=== PATIENT | male | born 1955 | race Caucasian/White ===

== ENCOUNTER 2017-06-10 09:43 | Emergency (ER) | END 2017-06-10 11:36 | disposition home or self-care (01) | DX: S61.411D Laceration without foreign body of right hand, subsequent encounter (principal); F17.210 Nicotine dependence, cigarettes, uncomplicated; W26.8XXD Contact with other sharp object(s), not elsewhere classified, subsequent encounter; Z23 Encounter for immunization | CPT/HCPCS: 90471; 90715; Z7502 ==

== ENCOUNTER 2017-06-17 20:46 | Emergency (ER) | payer MEDICAID ==
[~2017-06-17] VITALS: Ht 172.7 cm; Wt 68.0 kg
[2017-06-17 21:34] VITALS: Ht 172.7 cm; Wt 68.0 kg
[2017-06-17] MEDS ORDERED: SOD CHLORIDE 0.9% 1,000 ML IV STA (22:10)
[2017-06-17] MEDS ORDERED: ONDANSETRON 4 MG INJ IV STA (22:20)
[2017-06-17 22:39] LABS: BASOPHIL # 0.1 10^3/ul (0.0-0.1); BASOPHILS % 0.3 % (0.0-2.0); EOSINOPHILS # 0.1 10^3/ul (0.0-0.5); EOSINOPHILS % 0.9 % (0.0-7.0); HEMATOCRIT 40.9 % (42.0-52.0); HEMOGLOBIN 14.2 g/dl (14.0-18.0); LYMPHOCYTES # 2.1 10^3/ul (0.8-2.9); LYMPHOCYTES % 13.9 % (15.0-51.0); MEAN CORPUSCULAR HEMOGLOBIN 31.7 pg (29.0-33.0); MEAN CORPUSCULAR HGB CONC 34.7 g/dl (32.0-37.0); MEAN CORPUSCULAR VOLUME 91.3 fl (82.0-101.0); MEAN PLATELET VOLUME 9.8 fl (7.4-10.4); MONOCYTES % 6.6 % (0.0-11.0); NEUTROPHIL # 11.6 10^3/ul (1.6-7.5); NEUTROPHILS % 77.8 % (39.0-77.0); PLATELET COUNT 269 10^3/UL (140-415); RED BLOOD COUNT 4.48 10^6/ul (4.70-6.10); RED CELL DISTRIBUTION WIDTH 12.9 % (11.5-14.5); WHITE BLOOD COUNT 14.9 10^3/ul (4.8-10.8)
[2017-06-17 23:02] LABS: ANION GAP 12 (8-16); BLOOD UREA NITROGEN 18 mg/dl (7-20); CARBON DIOXIDE 26 mmol/L (21-31); CHLORIDE 105 mmol/L (97-110); CREATININE 0.69 mg/dl (0.61-1.24); GLUCOSE 120 mg/dl (70-220); POTASSIUM 3.8 mmol/L (3.5-5.1); SODIUM 139 mmol/L (135-144)
[2017-06-17 23:14] LABS: TROPONIN-I < 0.012 ng/ml (0.00-0.12)
--- NOTE | 2017-06-17 23:27 | RADRPT ---
PROCEDURE: XR Chest. CLINICAL INDICATION: Syncope. TECHNIQUE: Portable AP view of the chest was obtained. COMPARISON: None. FINDINGS: The cardiomediastinal silhouette is within normal limits. The lungs are clear. There is no evidenc e for pleural effusion, pneumothorax or pulmonary vascular congestion. The osseous structures are i ntact with no evidence for acute abnormality. RPTAT:HJJR IMPRESSION: No evidence for acute intrathoracic pathology. Physician Olga Date Time Electronically viewed and signed by Physician Olga on 06/17/2017 23:27 /
[2017-06-17 23:52] VITALS: BP 119/79; PULSE 85; RESP 16; TEMP 98.4
--- NOTE | 2017-06-18 00:06 | ERD ---
ER Documentation Chief Complaint Date/Time DATE: 06/18/17 TIME: 00:04 Chief Complaint weakness, witnessed syncopal episode. +SOB. Denies CP HPI Patient is a 61-year-old male with no medical problems who presents with syncope. The patient passed out at 8 PM. He says "it is my potassium". He has had this happen to him before and said that he had high potassium at that time. He denies chest pain but felt short of breath. He has had no treatment as of yet. Upon review of old medical records the patient one previous visit to the ER on June 10 of this year. He does not currently have a primary doctor. ROS All systems reviewed and are negative except as per history of present illness. Medications Home Meds No Active Prescriptions or Reported Meds Allergies Allergies: Coded Allergies: No Known Allergy (Unverified , 06/17/17) PMhx/Soc Medical and Surgical Hx: pt denies Surgical Hx Hx Miscellaneous Medical Probl: Yes (claims past potassium abnormality) Hx Alcohol Use: No Hx Substance Use: No Hx Tobacco Use: Yes Smoking Status: Light tobacco smoker FmHx Family History: No coronary disease Physical Exam Vitals Vital Signs Date Time Temp Pulse Resp B/P Pulse Ox O2 Delivery O2 Flow Rate FiO2 06/17/17 23:52 98.4 85 16 119/79 100 06/17/17 23:15 85 18 122/72 99 06/17/17 21:34 98.2 84 18 120/58 99 Physical Exam Const: No acute distress Head: Atraumatic Eyes: Normal Conjunctiva ENT: Normal External Ears, Nose and Mouth. Neck: Full range of motion..~ No meningismus. Resp: Clear to auscultation bilaterally Cardio: Regular rate and rhythm, no murmurs Abd: Soft, non tender, non distended. Normal bowel sounds Skin: No petechiae or rashes Back: No midline or flank tenderness Ext: No cyanosis, or edema Neur: Awake and alert Psych: Normal Mood and Affect Result Diagram: 06/17/17222406/17/175 Results 24 hrs Laboratory Tests Test 06/17/17 22:23 06/17/17 22:25 Bedside Glucose 123mg/dL White Blood Count 14.910^3/ul Red Blood Count 4.4810^6/ul Hemoglobin 14.2g/dl Hematocrit 40.9% Mean Corpuscular Volume 91.3fl Mean Corpuscular Hemoglobin 31.7pg Mean Corpuscular Hemoglobin Concent 34.7g/dl Red Cell Distribution Width 12.9% Platelet Count 60450^3/UL Mean Platelet Volume 9.8fl Neutrophils % 77.8% Lymphocytes % 13.9% Monocytes % 6.6% Eosinophils % 0.9% Basophils % 0.3% Nucleated Red Blood Cells % 0.0/100WBC Neutrophils # 11.610^3/ul Lymphocytes # 2.110^3/ul Monocytes # 1.010^3/ul Eosinophils # 0.110^3/ul Basophils # 0.110^3/ul Nucleated Red Blood Cells # 0.010^3/ul Sodium Level 139mmol/L Potassium Level 3.8mmol/L Chloride Level 105mmol/L Carbon Dioxide Level 26mmol/L Anion Gap 12 Blood Urea Nitrogen 18mg/dl Creatinine 0.69mg/dl Glucose Level 120mg/dl Calcium Level 9.0mg/dl Troponin I < 0.012ng/ml Current Medications Medications (Trade) Dose Ordered Sig/Caterina Route PRN Reason Start Time Stop Time Status Last Admin Dose Admin Sodium Chloride (NS) 1,000 ml @ 1,000 mls/hr Q1H STAT IV 06/17/17 22:10 06/17/17 23:09 DC 06/17/17 22:37 Ondansetron HCl (Zofran Inj) 4 mg ONCE STAT IV 06/17/17 22:20 06/17/17 22:22 DC 06/17/17 22:37 Procedures/MDM EKG read by me: Rate/Rhythm: Regular rate and rhythm at a normal rate Intervals: Normal Impression: No evidence of ischemia or arrhythmia Chest x-ray normal per radiology. Patient is a 61-year-old male who presents with syncope. His potassium was normal at 3.8. He had a slightly elevated white blood cell count of 14 otherwise laboratory studies are normal. His EKG shows no signs of arrhythmia or ischemia. His chest x-ray was read by radiology as normal. At this point I doubt acute coronary syndrome, pneumonia, pneumothorax, pulmonary embolism, or aortic dissection. The patient is well-appearing with stable vital signs at this point I believe outpatient management is appropriate. However the patient will need to follow-up with the primary doctor the local clinics within 24-48 hours. The patient can return for any worsening symptoms. He was given copies of his laboratory studies and x-ray report prior to discharge. Departure Diagnosis: Primary Impression: Syncope Syncope type: unspecified Qualified Code: R55 - Syncope, unspecified syncope type Additional Impression: Shortness of breath Condition: Fair Patient Instructions: Syncope, Unk Cause [facility] Usted se porter hecho un examen mdico de control que le indica que no est en aristides condicin que requiera tratamiento urgente en el Departamento de Emergencia. Un estudio ms profundo y el tratamiento de garrison condicin pueden esperar sin ningn riesgo hasta que usted sea atendida/o en el consultorio de garrison mdico o aristides cl yoanna. Es responsabilidad suya arreglar aristides melinda para el seguimiento del tawana. MANEJO DE CONDICIONES NO URGENTES EN EL FUTURO 1) Si usted tiene un mdico de atencin primaria: Usted debera llamar a garrison mdico de atencin primaria antes de venir al departamento de emergencia. Despus de las horas de consultorio, garrison doctor o garrison asociado/a est disponible por telfono. El mdico o enfermero de sakshi en el servicio telefnico puede asesorarle por sherri medio para atender el problema, o tawana contrario se puede programar aristides melinda. 2) Si usted no tiene un mdico de atencin primaria: Llame al mdico o clnica de referencia que aparece abajo saumya las horas de consultorio para hacer aristides melinda para que le vean. CLINICAS: [facility] [phone] [facility] [phone] [facility] [phone] [facility] [phone] [address] [facility] [phone] [facility] [phone] [address] Additional Instructions: Llame al doctor MAANA y declan aristides MELINDA PARA DENTRO DE 1-2 LOZA.Dgale a la secretaria que nosotros le instruimos hacer esta melinda.Avise o llame si garrison condicin se empeora antes de la melinda. Regresa aqui si peor o no mejor. JONH VALLECILLO MD Jun 18, 2017 00:06
== END 2017-06-18 | disposition home or self-care (01) ==
LOC: E/R 20:46
DX: R55 Syncope and collapse (principal); R06.02 Shortness of breath; F17.210 Nicotine dependence, cigarettes, uncomplicated
CPT/HCPCS: 36415; 71010; 80048; 82962; 84484; 85025; 93005; 96374; J2405; J7030; Z7502